=== PATIENT | male | born 2000 | race African-American/Black ===

== ENCOUNTER 2025-02-07 12:00 | Emergency (ER) | payer OTHER, SELFPAY ==
--- NOTE | ~2025-02-07 | XR_ITS ---
CLINICAL HISTORY: twist ankle, pain to ball of foot 3 view right foot Comparison: None provided Findings: Bones intact. No dislocations. No ankle effusion. No radiopaque foreign body. IMPRESSION: 1. No acute findings. This document has been electronically signed by: Luiza Rodríguez MD on 02/07/2025 15:05:59
--- NOTE | ~2025-02-07 | XR_ITS ---
CLINICAL HISTORY: twisted R ankle 3 view right ankle Comparison: None provided Findings: No acute fractures. Ankle mortise intact. No ankle effusion. No radiopaque foreign body. IMPRESSION: 1. No acute findings. This document has been electronically signed by: Luiza Rodríguez MD on 02/07/2025 15:05:04
[2025-02-07 12:08] VITALS: BP 107/63; PULSE 100; RESP 18; TEMP 36.6; O2SAT 99; BMI 27.3
--- NOTE | 2025-02-07 12:08 | ED_ITS ---
HPI - Extremity Injury (Lower) General Chief Complaint: Extremity Injury, Lower Stated Complaint: R ankle inj Time Seen by Provider: 02/07/25 15:09 Source: patient Mode of arrival: ambulatory Limitations: no limitations History of Present Illness ED Provider: NANCY ALEGRE PA-C HPI Narrative: 24 year old male presents to the ED today for evaluation of left ankle pain s/p injury occurring TAX INTERN. Patient reports he is currently in the . During a running drill today, patient states that he stopped abruptly to turn, causing his left ankle to roll/twist. Reports paint to the outer aspect of the ankle, extending to the ball of his foot. He was evaluated by the FD on scene, provided with ice with improvement in pain. Able to bear weight on the LLE. Denies numbness/weakness/tingling of the LLE. Denies any other injury. Related Data Allergies Allergy/AdvReac Type Severity Reaction Status Date / Time No Known Allergies Allergy Verified 02/07/25 12:09 Review of Systems Review of Systems: Yes all other systems are reviewed and are negative [facility] Past Medical History Attestation statement: The following information was validated with the patient. Source: old records reviewed and nursing notes reviewed Social History Social History Advance Directives: No Advance Directives Information Provided: No Do you have a plan to hurt others: No Plan Physical Exam Vital Signs: Vital Signs: Last Vital Signs Temp 98 F 02/07/25 15:22 Pulse 100 02/07/25 15:22 Resp 18 02/07/25 15:22 BP 107/63 02/07/25 15:22 Pulse Ox 99 02/07/25 15:22 O2 Del Method Room Air 02/07/25 15:22 BMI result Body Mass Index 27.3 vital signs stable General: Well appearing, in no acute distress. Skin: Warm, dry, intact. No rashes or lesions. Head: Normocephalic, atraumatic. EENT: Hearing is intact b/l. Conjunctiva clear. PERRLA. EOM intact. Moist mucous membranes.? Neck: Supple without LAD Cardiac: Chest wall symmetric. RRR Lungs: Normal respiratory effort without accessory muscle use. CTA bilaterally Ext: +mild swelling noted to lateral aspect of left ankle over lateral malleolus. no deformity, no overlying skin color changes. FROM intact to L ankle and all toes. ttp over lateral malleolus, no palpable deformity, crepitus, step off. 2+dp pulse intact. ambulating with slight limping gait. Neuro: AOx3. Normal speech. Course Course Course Narrative: This is a Rapid Medical Examination (RME) performed by Pascual Alegre PA-C in triage. Full HPI, ROS, assessment and treatment plan per primary provider in the Main ED. Hx: 24 yo M here w/ R ankle pain s/p running and twisting the R ankle. having R ankle pain extending to ball of R foot. pain worse w/ movement. Plan: xrs Reevaluation(s) Reevaluation #1: xrs negative for fracture. patient sprained his ankle. alexey wrap applied. declining crutches at this time. educated on RICE therapy. Patient has remained stable throughout ED visit today. Discussed worrisome signs and symptoms and when to return to the ED. All questions answered at this time. Patient is agreeable with disposition and stable for discharge. Medications Administered Discontinued Medications Generic Name Dose Route Start Last Admin Trade Name Freq PRN Reason Stop Dose Admin Acetaminophen 650 mg 02/07/25 15:15 02/07/25 15:19 Acetaminophen 325 Mg Tablet PO 02/07/25 15:16 650 mg ONCE ONE Administration Medical Decision Making Medical Decision Making [facility] Narrative: 24 year old male presents to the ED today for evaluation of left ankle pain s/p injury occurring TAX INTERN. vitals are stable. he is well appaering and in NAD. on exam, there is mild swelling noted to lateral aspect of left ankle over lateral malleolus. no deformity, no overlying skin color changes. FROM intact to L ankle and all toes. ttp over lateral malleolus, no palpable deformity, crepitus, step off. 2+dp pulse intact. ambulating with slight limping gait. Differential diagnosis includes msk sprain/strain, fracture Plan for imaging and disposition. Tylenol ordered for pain control. Differential Diagnosis Differential Diagnoses: The differential diagnosis associated with the presentation includes as above. Admission/Observation not indicated. Independent Interpretation I performed an independent interpretation of an: Plain X-Ray Interpretation: xr left ankle/foot without fracture Radiology Impression Radiologist Impression: Procedure(s): XR foot RT min 3V Accession Number(s): [id number] cc: Physician,None ; Nancy Alegre~ Reason for Exam: twist ankle, pain to ball of foot CLINICAL HISTORY: twist ankle, pain to ball of foot 3 view right foot Comparison: None provided Findings: Bones intact. No dislocations. No ankle effusion. No radiopaque foreign body. IMPRESSION: 1. No acute findings. This document has been electronically signed by: Luiza Rodríguez MD on 02/07/2025 15:05:59 Procedure(s): XR ankle RT min 3V Accession Number(s): [id number] cc: Physician,None ; Nancy Alegre~ Reason for Exam: twisted R ankle CLINICAL HISTORY: twisted R ankle 3 view right ankle Comparison: None provided Findings: No acute fractures. Ankle mortise intact. No ankle effusion. No radiopaque foreign body. IMPRESSION: 1. No acute findings. This document has been electronically signed by: Luiza Rodríguez MD on 02/07/2025 15:05:04 External Record Review External record reviewed: Inpatient record Prescription Management I considered prescription management with: Pain Medication Social Determinants Patient?s care significantly limited by Social Determinants of Health including: Other Social Determinant of Health Procedures Orthopedic Splinting/Casting Injury #1: Side: left Lower Extremity Injury Location: ankle Lower Extremity Immobilizer: Alexey wrap Critical Care Time Critical Care Time Critical Care Time: No Discharge Plan Discharge Clinical Impression: Left ankle sprain Patient Disposition: Home, Self-Care Instructions: Ankle Sprain (ED), P.R.I.C.E. Treatment (ED), Ice Pack Application (ED) Additional Instructions: You were evaluated in the ED today for a left ankle injury. Your x-rays do not demonstrate any sign of fracture. You sprained your ankle. We have placed your ankle in an Alexey wrap today to help with compression. Utilize RICE therapy at home - see home care instructions. Take tylenol/motrin at home as needed for pain/discomfort. Follow up with your primary care provider. Return with any new or worsening symptoms. In the case of an emergency call 911. Referrals: Physician,None [Primary Care Provider, Medical] Stand Alone Forms: Work/School Release Interventions: ED Discharge Assessment Last Done: 02/07/25 15:22 Discharge Date/Time: 02/07/25 15:30 Print Language: Mikel
[2025-02-07 15:22] VITALS: BP 107/63; PULSE 100; RESP 18; TEMP 36.6; O2SAT 99
--- OUTSIDE RECORDS SUMMARY | 2025-02-07 15:30 | XMS_ITS | Data Portability ---
Author Organization ANDREA Hayes s, [address] Address [address] [place] [address] Assessment No assessment recorded. Plan of Treatment Reminders Order Date Submit Date Provider Last Modified By Organization Details Last Modified Time Details Appointments None recorded. Lab rapid strep group A, throat 2023 024 [email or web address] [facility], [address] [place], [address], 4 19:44:05 rapid flu (A+B) 2023 024 [email or web address] [facility], [address] [place], [address], 4 19:44:06 SARS CoV 2 (COVID-19) Ag, QL, IA, upper respiratory specimen 2023 024 [email or web address] [facility], [address] [place], [address], 4 19:44:07 rapid strep group A, throat 2022 023 [email or web address] _[facility], [address] [place] [address], [address], 3 12:14:55 Referral orthopedic surgeon referral 2023 024 jana bartlett [facility], [address], [address] [place], [address], 13:20:18 Procedures None recorded. Surgeries None recorded. Imaging None recorded. Medication Orders amoxicillin 875 mg-potassiu m clavulanate 125 mg tablet 2023 024 [facility][id number], [address] [facility] [place], [address], 19:44:05 amoxicillin 875 mg-potassiu m clavulanate 125 mg tablet 2023 024 [id number], [address] [facility] [place], [address], 19:06:16 dexamethaso ne sodium phosphate (PF) 10 mg/mL injection solution 2022 023 [email or web address] Not available 12:49:45 Patient TargetsNo targets recorded. Patient Instructions Encounter Date Encounter Id Patient Instructions Last Modified By Organization Details Last Modified Time 05/13/2022 [id number] sore throat: car e instructions [email or web address] Not available 05/13/2022 12:14:54 04/30/2023 [id number] Acute Sinusitis: Care Instructions [email or web address] Not available 04/30/2023 13:12:48 knee pain or injury: care instructions [email or web address] Not available 04/30/2023 13:14:38 Take the antibiotic as prescribed. Take an over the counter probiotic daily while taking the antibiotic. Over the counter mucinex may be taken for congestion if needed. Take per package instructions. Over the counter tylenol or ibuprofen may be taken if needed for pain. A referral has been made to orthopedics for you. Call [facility] for an appointment as soon as possible. See printed instructions. Follow-up with your doctor if no improvement in your sinus symptoms in a week. Seek Emergency Medical evaluation for any worsening symptoms, particularly for high fever, shaking chills, severe headache, rash, stiff neck, trouble breathing, severe diarrhea. [email or web address] Not available 04/30/2023 13:17:09 05/17/2023 [id number] Acute Sinusitis: Care Instructions Not available 05/17/2023 19:44:03 upper respirator y infection (cold): care instructions Not available 05/17/2023 19:44:03 Reason for Referral Orthopedic Surgeon Referral for Pain of bilateral knee joints Bilatearl knee pain since 2021. No trauma. Interfering with physical activity. Referring Physician: Kayla Mackey, Urgent Care, Encounter Date: 04/30/2023 Results Created Date Observation Date Name Description Value Unit Range Abnormal Flag Note LastModifiedBy Organization Detail LastModifiedTime 05/14/1905/13/2022 rapid strep group A, throa t Unknown Analyte negati ve Not Available [address] [address], [address], 05/13/2022 11:34:56 05/14/19 23 05/13/2022 rapid strep group A, throa t Unknown Analyte Normal = Negati ve Not Available [email or web address] [address], [address], 05/13/2022 11:34:56 05/17/19 24 05/17/2023 rapid strep group A, throa t Unknown Analyte negati ve Not Available [address] [place], [address], 05/17/2023 19:09:51 05/17/19 24 05/17/2023 SARS CoV 2 (COVI D-19) Ag, QL, IA, upper respi rator y speci men Unknown Analyte negati ve Not Available [address] [place], [address], 05/17/2023 19:10:40 05/17/19 24 05/17/2023 rapid flu (A+B) Unknown Analyte negati ve Not Available [address] [place], [address], 05/17/2023 19:10:05 05/17/19 24 05/17/2023 rapid flu (A+B) Unknown Analyte negati ve Not Available [address] [facility], [place], [address], 05/17/2023 19:10:05 Result Notes None recorded. Problems Name Problem SNOMED Code Status Onset Date Resolution Date Notes Provider Name and Address Organization Details Recorded Time Upper respiratory infection 88229217 Active 2023 Edith Bryant NP [address] , [place], [address], [place] - [facility] 19:31:52 Acute left otitis media 796858008 Active 2023 Edith Bryant NP [address] , [place], [address], [place] - [facility] 19:43:40 Problem Notes None recorded. Medical Equipment None Reported. Allergies No known drug allergies Medications Name Sig Start Date Stop Date Status Note LastModified by Organization Details LastModified Time amoxicill in 875 mg-potass ium clavulana te 125 mg tablet Take 1 tablet every 12 hours by oral route for 10 days. 2023 active Not Available Not Available Not Avai lable dexametha sone sodium phosphate (PF) 10 mg/mL injection solution Take 10 mg by injectio n route. 04/30 completed Administ er Orally Not Available Not Available Not Available Vitals Date Recorded Body height Body mass index (BMI) Body weight Oxygen saturation Respiratory rate Body temperature Heart rate Systolic And Diastolic Provider Name and Address Organization Details Last Updated DateTime 4 187.96 cm 23.8 kg/m2 96199.5 9 g 96 % 18 /min 98.1 [degF] 67 /min 113/77 mm[Hg] HERMILA AVERY PA - [facility] 4 12:51:17 Date Recorded Body height Body mass index (BMI) [Percentile] Per age and sex Body mass index (BMI) Body weight Oxygen saturation Heart rate Respiratory rate Body temperature Systolic And Diastolic Provider Name and Address Organization Details Last Updated DateTime 3 187.96 cm 62 % 24.4 kg/m2 65037.5 5 g 99 % 88 /min 16 /min 98.7 [degF] 117/76 mm[Hg] KATEY BEST PA - [facility] 3 11:52:22 Date Recorded Body height Body mass index (BMI) Body weight Oxygen saturation Heart rate Respiratory rate Body temperature Systolic And Diastolic Provider Name and Address Organization Details Last Updated DateTime 4 187.96 cm 26.3 kg/m2 83923.4 4 g 98 % 68 /min 18 /min 98.3 [degF] 97/62 mm[Hg] Tricia Hall PA - [facility] 4 19:09:19 Social History Question Answer Notes LastModified by [email or web address] Details LastModified Time Tobacco Smoking Status Never Smoker KATEY BEST joshua PA - [facility] 05/13/2022 11:36:19 Have You Had A Flu Shot This Season? Yes Information not available 05/17/2023 If No, Would You Like A Flu Shot Today? No Information not available 05/17/2023 Have You Had Direct Contact, Or Contact During Intimacy, With Monkeypox Rash, Scabs, Or Body Fluids From A Person With Monkeypox? No Information not available 05/17/2023 What Was The Date Of Your Most Recent Tobacco Screening? 05/17/2023 Information not available 05/17/2023 What Is Your Relationship Status? Single Information not available 05/17/2023 Have You Recently Traveled Abroad? No Information not available 05/13/2022 Are You Currently In School? No Information not available 05/17/2023 Sex: Unknown Functional Status Question Answer Note LastModified by userfox Details LastModified Time How many times per week do you consume alcohol? Less than 1 time per week Information not available 05/17/2023 Do you use any illicit or recreational drugs? No Information not available 05/13/2022 Do you or have you ever used any other forms of tobacco or nicotine? No Information not available 05/13/2022 What is your level of alcohol consumption? Occasional [email or web address] Information not available 04/30/2023 Are you currently employed? Yes Information not available 05/13/2022 Mental Status None recorded. Family History Relationship Description Onset Age of this Age Resolved Age Notes LastModified by Organization Details LastModified Time Father No current problems or disability Not available 05/13 11:36:03 Mother No current problems or disability Not available 05/13 11:36:03 Medical History No medical history recorded. Immunizations Vaccine Type Date Status Note Provider Nam e and Address Organization Details Recorded Time SARS-COV-2 (COVID-19) vaccine, UNSPECIFIED 10/04/2020 completed Tricia lewis PA - [facility] 05/17/2023 19:07:03 SARS-COV-2 (COVID-19) vaccine, UNSPECIFIED 10/18/2020 completed Tricia lewis PA - [facility] 05/17/2023 19:07:13 Past Encounters Encounter ID Performer Location Encounter Start Date Encounter Closed Date Diagnosis/Indication Diagnosis SNOMED-CT Code Diagnosis ICD10 Code Diagnosis IMO Codes Diagnosis Note [id number] RUBIO SERNA MD [address] [address] 05/13/2022 09:09:55 05/13/2022 12:28:38 Acute laryngitis 8362466 J04.0 Sore throatClea r liquids for comfortFre sh Enisha Root Tea-Cut up fresh neisha root and boil it till fragrant. drink the liquid as a tea. Can add Honey to taste. Also For Sore Throat:Thr oat Comfort Tea (by [employer])Thro at Coat Tea ( by [employer] ) Clear broth soup: Vegetable, Chicken or Beef as tolerated. Salt Water GarglesMix 1 teaspoonfu l of salt in a glass of warm water. Gargle and spit out the salt water mixture one mouthful at a time until the glass is empty. Repeat 4 times daily. [id number] Kayla Mackey [place] [address] [place] [place] [address] 04/30/2023 11:34:18 04/30/2023 13:20:18 Sinusitis 99810552 J32.9 Pain of bi lateral knee joints 2093682746 80941 M25.561 M25.562 [id number] Edith Bryant NP [address] [facility] [address] [facility] [place] [place] [address] 05/17/2023 19:01:19 05/17/2023 19:50:06 Upper respiratory infection 65101353 J06.9 Based on your Presentati on, Exam, and Lab Testing you are being diagnosed with Upper respirator y track infection Your covid test was negative You are considered contagious for 5 Days after the start of the fever. You should isolate and not go to work, sports, events during this quarantine period. The following are my recommenda tions to help with your symptoms while your body fights this infection: 1. Take Ibuprofen or Tylenol if you do not have any allergies to these medication s. If you take a blood thinner you should not take NSAIDS like Ibuprofen. These medication will help with the inflammati on in your respirator y tract which should help the cough.2. Do not take any decongesta nts at this time because this will dry out that tract too much. If you have a lot of nasal congestion you can try nasal decongesta nts, but I would not take them more than 5 days.3. Use a humidifier or add a cup of water by your bed. Sometimes if our sleeping environmen t is too dry this can lead to cough4. Salt Water Gargles5. Saline nasal spray is helpful.6. Would recommend taking a antihistam ine to help with the congestion .7. Clean Surfaces regularly and try to stay isolated from family members. I would be seen again if you develop any of the following. 1. Cough develops last longer than 3 weeks.2. Develop shortness of breath or wheezing.3 . Severe Headache with vision changes4. Stiff Neck5. Fever does not reduce a few points with Ibuprofen or Tylenol. I would go immediatel y to the Emergency Room if you develop:1. Chest Pain2. Severe Shortness of breath3. Coughing up Blood. I would be seen again if you develop any of the following symptoms.1 . Fever > 101.02. Stiff neck - where you can't turn your neck3. Trouble swallowing your saliva - drooling4. Swelling of a lymph node in your throat that is painful to touch5. Difficulty breathing6 . Severe Headache Thank you for using [facility] today, please feel free to contact our office if you have any questions or concerns. Acute left otitis media 488836304 H66.92 Health Concerns Section Related Observation LastModified by Organization Detai ls LastModified Time None Recorded Concern Status LastModified by Organization Details LastModified Time None Recorded Advance Directives Directive None Recorded Payers Insurance Date Sequence Insurance Name Policy Number Policy Brantley Covered Member ID Brantley Member ID Guarantor Name 06/08/2023 1 [facility] () [facility] [id number] [facility] Notes Date Note Type Note Provider Name and Address Organization Details Recorded Time 3 text/html Sore throatReported by PatientSore ThroatFor associated symptoms, patient reportshoarsenessbut reportsno cough,no shortness of breath, andno sinus pain. For location, patient reportsthroat. For severity, patient reportsmoderate. For quality, patient reportssharpandhurts to swallow. For onset/timing, patient reports2 days.ROS as noted in the HPI He describes pain in the laryngeal area of the throat. RUBIO SERNA MD [address] [place], [place] [address], [address], [place] - [facility] 05/13/2022 12:40:02 4 text/html KneeReported by PatientHPIFor location, patient reportsbilateralandanteri or. For quality, patient reportsachingandconstant. For duration, patient reports2 years. For timing, patient reportsgradual. For context, patient reportscannot identify. For alleviating factors, patient reportsrest. For aggravating factors, patient reportsstandingandwalking (running.). For associated symptoms, patient reportsno weakness,no numbness,no tingling,no swelling,no redness,no ecchymosis,no catching/locking,no popping/clicking,no buckling,no grinding,no instability,no radiation down leg,no drainage,no fever, andno chills. For previous surgery, patient reportsnone. For prior imaging, patient reportsx rayandmri. For previous injections, patient reportsnone. For previous pt, patient reportsnone. For severity, (waxing and waning in severity.). For working, (on active duty in .). CongestionNewReported by PatientHPIFor location, patient reportsbilateral(frontal and maxillary sinuses.). For associated symptoms, patient reportscough,runny nose, andmoderate. For quality, patient reportspressure. For timing, patient reportsconstantandgradual onset(1 month.).22 year old male presenting for 2 different problems. First he reports bilateral frontal and maxillary sinus pain and pressure, nasal congestion, runny nose and post nasal drip with productive cough, particularly in the morning for one month. No fever, chills, sore throat, chest pain, wheezing, shortness of breath, generalized headache, rash, stiff neck, GI symptoms. He is also here due to c/o chronic bilateral knee pain for the past 2 years. 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 He reports that he had xrays through the that were unremarkable. He subsequently had an MRI of his right knee but does not know the report. One month ago he failed his physical fitness test due to being unable to complete a run due to his knee pain. He reports that he is scheduled for a repeat physical fitness test and is requesting a note to not participate in the running part of the test due to his knee pain. No knee swelling or increased warmth, no skin redness, no numbness or weakness of the extremities. His knee pain is worse with standing, walking and particularly with running. Kayla Mackey MD [address] [place] [address] [place], [address], [place] - [facility] 04/30/2023 15:03:03 4 text/html Sinus Complaints UCReported by Patient Headache UCReported by Patient Sore throatReported by PatientSore ThroatFor associated symptoms, patient reportssore throat,fever,__ congestion,coughing, andsinus pain/ congestionbut reportsno sputum production,no shortness of breath,no wheezing,no vomiting,no nausea, andno hoarseness. For context, patient reportssick contactbut reportsno foreign travelandnon-smoker. For source of patient information, patient reportsinformation obtained from patientandpatient arrived at urgent care ambulatory. For location, patient reportsthroat. For severity, patient reportsmoderate. For quality, patient reportssharpandhurts to swallow. CoughReported by Patient Presents with MACKEY, cough, ST Edith Bryant NP [address] [place], [address], [place] - [facility] 06/08/2023 09:36:40
--- OUTSIDE RECORDS SUMMARY | 2025-02-07 15:30 | XMS_ITS | Data Portability ---
Author Organization [place] - .[facility] Address [address] [place] [address] Assessment No assessment recorded. Plan of Treatment Reminders Order Date Submit Date Provider Last Modified By Organization Details Last Modified Time Details Appointments None recorded. Lab influenza virus A + B and SARS CoV 2 (COVID-19) and RSV RNA panel, NADIYA+probe, respiratory specimen 2023 024 [facility], [address] [place] [address], [id number], 4 06:38:57 influenza virus A + B + SARS-CoV-2 (COVID19) Ag panel, rapid IA, upper respiratory specimen 2023 024 [email or web address] [facility], [address] [place], [id number], 4 19:15:47 HIV 1+2 AB + HIV 1 p24 Ag, qualitative immunoassay , serum 2022 023 [email or web address] [facility], [facility] [place], [address], 3 11:03:48 chlamydia + gonorrhea RNA, QL, unspecified specimen 2022 023 [email or web address] [facility], [address] [place] [address], [address], 3 11:03:48 HBsAg (hepatitis B surface Ag), serum 2022 023 [email or web address] [facility], [address] [place] [address], [address], 3 11:03:48 hepatitis C virus Ab, serum 2022 023 [email or web address] d [facility], [address] [place] [address], [address], 3 11:03:48 syphilis Ab, igg 2022 023 [email or web address] [facility], [address] [place] [address], [address], 3 11:03:48 trichomonas vaginalis RNA, tma, genital 2022 023 [email or web address] d [facility], [address] [place] [address], [address], 3 11:03:48 urinalysis, dipstick 2022 023 [email or web address], [address], [place], , 3 20:03:51 culture, urine 2022 023 [facility], [address] [place] [address], [address], 3 08:25:12 unlisted lab - STD panel (urine) - d 2022 023 [facility], [address] [place] [address], [address], 3 22:09:35 HIV 1+2 AB + HIV 1 p24 Ag, qualitative immunoassay , serum 2022 023 [facility], [address] [facility] [place], [address], 3 22:25:58 rapid SARS CoV 2 Ag, QL IA, respiratory specimen 2020 021 [email or web address] [facility], [address] [place], [id number], 20:01:15 Referral primary care provider referral - List 2022 023 [email or web address] Not available 3 11:03:48 primary care provider referral - List 2022 023 LYN Not available 4 05:04:26 Procedures None recorded. Surgeries None recorded. Imaging None recorded. Medication Orders Tylenol Extra Strength 500 mg tablet 2023 024 [id number], [address], [place], [id number], 4 19:15:47 cefdinir 300 mg capsule 2023 024 [id number], [address], [place], [id number], 4 19:15:47 Patient TargetsNo targets recorded. Patient Instructions Encounter Date Encounter Id Patient Instructions Last Modified By Organization Details Last Modified Time 02/03/2021 [id number] A healthy lifestyle: care instructions [email or web address] Not available 02/03/2021 20:01:15 Thank you for visiting [email or web address]. There are two ways to view your lab results: : 1. The Ready To [employer] fernando is available to all patients 18 and older in the Fernando Store and Google Play. First-time fernando users will need to create an account; please note you l l need to select a login and password for the fernando versus just using your patient portal login credentials. Your lab results will be posted to the Ready [employer] fernando as soon as they r e available. 2. Via email , as soon as lab results are available. If you don t receive an email within the estimated time frame, give our Aftercare team a call at [phone]. Rapid Covid-19 Testing: You were tested today for COVID-19 using a rapid nsjpw-ib-ifbh test. Your results will be sent to you shortly via email. The next steps in your care depend on the results from this test AND the presence or absence of symptoms. Negative Rapid Covid-19: If you are without symptoms AND your Rapid Covid-19 test is Negative, AND you have not had a recent High Risk Exposure to COVID-19 (ie. close contact for more than 15 minutes (cumulative over 24 hours) to someone with confirmed COVID-19), you are cleared to return to work/school without limitations. Positive Rapid Covid-19: 1.) Symptomatic: If you're having symptoms and test positive for COVID-19, you are recommended to self-quarantine for 10 days from the onset of symptoms. After 10 days, you may return to work provided your respiratory symptoms (ie. cough, runny nose, etc) are improving AND you are fever-free for 24 hours (without using fever reducing medications like acetaminophen or ibuprofen). 2.) Asymptomatic: If you are without symptoms and test positive, you should self-quarantine until 10 days after today. If a PCR test was also sent, the results (positive or negative) will not change your need to quarantine. If you go on to develop symptoms, you may still return to work/school 10 days after the date of your positive test provided your symptoms are improving and you are fever-free for 24 hours (from date of exposure) regardless of the results of today's test. High Risk Exposure: If you have had a recent High Risk Exposure to COVID-19 (ie. close contact for more than 10 minutes (cumulative over 24 hours) to someone with confirmed COVID-19) you should Self-Quarantine for 10 days (from date of exposure) regardless of the results of today's test. (If you have received the 2nd dose of the COVID-19 VACCINE more than 14 days ago (and within the past 90 days) you do NOT need to quarantine after this recent high-risk exposure (provided you remain asymptomatic). MONITOR YOUR SYMPTOMS: If at any point your symptoms become worse or severe such as fever that will not improve with medicine, shortness of breath, chest pain or discomfort, abdominal pain, inability to tolerate eating and drinking, please return to [facility] or go to the closest Emergency Room. QUARANTINE INFO: If you were asked to quarantine yourself, please stay in your own part of the house away from everyone else, using your own bedroom and bathroom, if possible. If you need to be in a common area ensure that both you and anyone else around you is wearing a mask. If you are age 18 to 65 and have recently tested positive for SARS-CoV-19, you can help in the fight against COVID-19! Antibodies from your blood can be given to patients with COVID-19 to help save lives. Sign up using the link below. If you are eligible, a member of our team will contact you to schedule an appointment. Donors are compensated at each donation! Please visit [email or web address] and complete the screening form to see if you are eligible for donation [email or web address] Not available 02/03/2021 17:42:33 07/19/2022 [id number] A healthy lifestyle: care instructions [email or web address] Not available 07/19/2022 14:28:45 Thank you for visiting [facility].There are two ways to view your lab results: : 1. The Ready To Travel fernando is available to all patients 18 and older in the Fernando Store and Google Play. First-time fernando users will need to create an account; please note you l l need to select a login and password for the fernando versus just using your patient portal login credentials. Your lab results will be posted to the Ready To Travel fernando as soon as they r e available. 2. Via email , as soon as lab results are available. If you don t receive an email within the estimated time frame, give our Aftercare team a call at [phone]. STD TESTING Your visit today was potentially related to a sexually transmitted disease (STD). Testing and treatment may have been initiated by your caregiver. A definitive diagnosis often cannot be made at the time of the visit and tests are sent out to a laboratory help to ascertain answers to your concerns. As an urgent care provider, we have made our best attempt to diagnose your condition. However, it is important that you follow up with your regular provider for continued care as necessary. Please contact us with any questions regarding your care or treatment. We are here to help. HOME CARE Abstain from sexual intercourse for one week after treatment for you (or your partner) for a presumed STD, or until the results of your STD tests are back if you did not receive treatment at your visit today. Notifying and having your partner treated if possible, is essential to prevent spread of disease and repeated infection: if you resume sexual relations with an untreated partner, you will likely contract the STD again. Return if your symptoms do not resolve with treatment. Follow up with your primary care physician (or neonatal specialist, if applicable) for ongoing medical treatment. Repeat testing after periods of time is usually needed to confirm that you have not been infected with certain STDs. TEST RESULTS If tests were performed during your visit, test results will be relayed to you by our Aftercare department. Please understand that some blood tests take longer to process than others as secondary testing may be performed to ensure accuracy. Some test results take up to two weeks for return to us from the laboratory; you may be asked to return to [facility] for a discussion of your results. Please call [facility] Aftercare if you desire a status update on your results. If you have questions on the day of treatment, you are best served to first contact the site you visited for care and testing so that you may speak with your providing caregiver. You can also reach Aftercare at ; office hours are 8 am to 9 pm Sun-Sun, and 9 am to 7 pm on weekends. [email or web address] Not available 07/19/2022 13:22:18 09/14/2022 [id number] A healthy lifestyle: care instructions Not available 09/14/2022 20:03:51 abdominal pain: care instructions Not available 09/14/2022 20:03:51 Thank you for visiting [employer] [facility]. We may be calling you to review your lab results or schedule a follow up appointment. The call will be through an automated system which asks you to press a castillo to speak with one of our agents. Please be on the lookout for this call and listen to the message in its entirety. You may also view your lab results using the Ready To Travel fernando, available in the Fernando Store and [employer]. First-time fernando users will need to create an account; please note you l l need to select a login and password for the fernando versus just using your patient portal login. Your lab results will be posted to the Ready To Travel fernando as soon as they r e available. If you have any questions regarding your visit, our Aftercare department can be reached at [phone]. Our hours are Sunday from 8 am 11 pm or Sunday/Sunday from 9a 8p. Abdominal Pain Abdominal pain has many possible causes. Some aren''t serious and get better on their own in a few days. Others need more testing and treatment. If your pain continues or gets worse, you need to be rechecked and may need more tests to find out what is wrong. You may need surgery to correct the problem. Don''t ignore new symptoms, such as fever, nausea and vomiting, urination problems, pain that gets worse, and dizziness. These may be signs of a more serious problem. Your doctor may have recommended a follow-up visit in the next 8 to 12 hours. If you are not getting better, you may need more tests or treatment. The doctor has checked you carefully, but problems can develop later. If you notice any problems or new symptoms, get medical treatment right away. Follow-up care is a castillo part of your treatment and safety. Be sure to make and go to all appointments, and call your doctor if you are having problems. It''s also a good idea to know your test results and keep a list of the medicines you take. How can you care for yourself at home? Rest until you feel better. To prevent dehydration, drink plenty of fluids, enough so that your urine is light yellow or clear like water. Choose water and other caffeine-free clear liquids until you feel better. If you have kidney, heart, or liver disease and have to limit fluids, talk with your doctor before you increase the amount of fluids you drink. If your stomach is upset, eat mild foods, such as rice, dry toast or crackers, bananas, and applesauce. Try eating several small meals instead of two or three large ones. Wait until 48 hours after all symptoms have gone away before you have spicy foods, alcohol, and drinks that contain caffeine. Do not eat foods that are high in fat. Avoid anti-inflammatory medicines such as aspirin, ibuprofen (Advil, Motrin), and naproxen (Aleve). These can cause stomach upset. Talk to your doctor if you take daily aspirin for another health problem. When should you call for help? Call 911 anytime you think you may need emergency care. For example, call if: You passed out (lost consciousness). You pass maroon or very bloody stools. You vomit blood or what looks like coffee grounds. You have new, severe belly pain. Call your doctor now or seek immediate medical care if: Your pain gets worse, especially if it becomes focused in one area of your belly. You have a new or higher fever. Your stools are black and look like tar, or they have streaks of blood. You have unexpected vaginal bleeding. You have symptoms of a urinary tract infection. These may include: Pain when you urinate. Urinating more often than usual. Blood in your urine. You are dizzy or lightheaded, or you feel like you may faint. Watch closely for changes in your health, and be sure to contact your doctor if: You are not getting better after 1 day (24 hours). Gastritis Your Care Instructions Gastritis is a sore and upset stomach. It happens when something irritates the stomach lining. Many things can cause it. These include an infection such as the flu or something you ate or drank. Medicines or a sore on the lining of the stomach (ulcer) also can cause it. Your belly may bloat and ache. You may belch, vomit, and feel sick to your stomach. You should be able to relieve the problem by taking medicine. And it may help to change your diet. If gastritis lasts, your doctor may prescribe medicine. Follow-up care is a castillo part of your treatment and safety. Be sure to make and go to all appointments, and call your doctor if you are having problems. It's also a good idea to know your test results and keep a list of the medicines you take. How can you care for yourself at home? If your doctor prescribed antibiotics, take them as directed. Do not stop taking them just because you feel better. You need to take the full course of antibiotics. Be safe with medicines. If your doctor prescribed medicine to decrease stomach acid, take it as directed. Call your doctor if you think you are having a problem with your medicine. Do not take any other medicine, including ovle-can-ywvalyy pain relievers, without talking to your doctor first. If your doctor recommends agbs-eeh-pjbfehb medicine to reduce stomach acid, such as Pepcid AC, Prilosec, Tagamet HB, or Zantac 75, follow the directions on the label. Drink plenty of fluids (enough so that your urine is light yellow or clear like water) to prevent dehydration. Choose water and other caffeine-free clear liquids. If you have kidney, heart, or liver disease and have to limit fluids, talk with your doctor before you increase the amount of fluids you drink. Limit how much alcohol you drink. Avoid coffee, tea, cola drinks, chocolate, and other foods with caffeine. They increase stomach acid. When should you call for help? Call 911 anytime you think you may need emergency care. For example, call if: You vomit blood or what looks like coffee grounds. You pass maroon or very bloody stools. Call your doctor now or seek immediate medical care if: You start breathing fast and have not produced urine in the last 8 hours. You cannot keep fluids down. Watch closely for changes in your health, and be sure to contact your doctor if: You do not get better as expected. Diarrhea Your Care Instructions Diarrhea is loose, watery stools (bowel movements). The exact cause is often hard to find. Sometimes diarrhea is your body's way of getting rid of what caused an upset stomach. Viruses, food poisoning, and many medicines can cause diarrhea. Some people get diarrhea in response to emotional stress, anxiety, or certain foods. Almost everyone has diarrhea now and then. It usually isn't serious, and your stools will return to normal soon. The important thing to do is replace the fluids you have lost, so you can prevent dehydration. The doctor has checked you carefully, but problems can develop later. If you notice any problems or new symptoms, get medical treatment right away. Follow-up care is a castillo part of your treatment and safety. Be sure to make and go to all appointments, and call your doctor if you are having problems. It's also a good idea to know your test results and keep a list of the medicines you take. How can you care for yourself at home? Watch for signs of dehydration, which means your body has lost too much water. Dehydration is a serious condition and should be treated right away. Signs of dehydration are: Increasing thirst and dry eyes and mouth. Feeling faint or lightheaded. Darker urine, and a smaller amount of urine than normal. To prevent dehydration, drink plenty of fluids, enough so that your urine is light yellow or clear like water. Choose water and other caffeine-free clear liquids until you feel better. If you have kidney, heart, or liver disease and have to limit fluids, talk with your doctor before you increase the amount of fluids you drink. Begin eating small amounts of mild foods the next day, if you feel like it. Try yogurt that has live cultures of Lactobacillus. (Check the label.) Avoid spicy foods, fruits, alcohol, and caffeine until 48 hours after all symptoms are gone. Avoid chewing gum that contains sorbitol. Avoid dairy products (except for yogurt with Lactobacillus) while you have diarrhea and for 3 days after symptoms are gone. The doctor may recommend that you take zcpy-nge-jlhttme medicine, such as loperamide (Imodium), if you still have diarrhea after 6 hours. Read and follow all instructions on the label. Do not use this medicine if you have bloody diarrhea, a high fever, or other signs of serious illness. Call your doctor if you think you are having a problem with your medicine. When should you call for help? Call 911 anytime you think you may need emergency care. For example, call if: You passed out (lost consciousness). Your stools are maroon or very bloody. Call your doctor now or seek immediate medical care if: You are dizzy or lightheaded, or you feel like you may faint. Your stools are black and look like tar, or they have streaks of blood. You have new or worse belly pain. You have symptoms of dehydration, such as: Dry eyes and a dry mouth. Passing only a little dark urine. Feeling thirstier than usual. You have a new or higher fever. Watch closely for changes in your health, and be sure to contact your doctor if: Your diarrhea is getting worse. You see pus in the diarrhea. You are not getting better after 2 days (48 hours). Not available 09/15/2022 13:44:47 12/09/2022 [id number] A healthy lifestyle: care instructions [email or web address] Not available 12/15/2022 11:03:48 Thank you for visiting [facility]. We may be calling you to review your lab results or schedule a follow up appointment. The call will be through an automated system which asks you to press a castillo to speak with one of our agents. Please be on the lookout for this call and listen to the message in its entirety. You may also view your lab results using the Ready To [employer] fernando, available in the Fernando Store and Google Play. First-time fernando users will need to create an account; please note you l l need to select a login and password for the fernando versus just using your patient portal login. Your lab results will be posted to the Ready [employer] fernando as soon as they r e available. If you have any questions regarding your visit, our Aftercare department can be reached at [phone]. Our hours are Sunday from 8 am 11 pm or Sunday/Sunday from 9a 8p. STD TESTING Your visit today was potentially related to a sexually transmitted disease (STD). Testing and treatment may have been initiated by your caregiver. A definitive diagnosis often cannot be made at the time of the visit and tests are sent out to a laboratory help to ascertain answers to your concerns. As an urgent care provider, we have made our best attempt to diagnose your condition. However, it is important that you follow up with your regular provider for continued care as necessary. Please contact us with any questions regarding your care or treatment. We are here to help. HOME CARE Abstain from sexual intercourse for one week after treatment for you (or your partner) for a presumed STD, or until the results of your STD tests are back if you did not receive treatment at your visit today. Notifying and having your partner treated if possible, is essential to prevent spread of disease and repeated infection: if you resume sexual relations with an untreated partner, you will likely contract the STD again. Return if your symptoms do not resolve with treatment. Follow up with your primary care physician (or neonatal specialist, if applicable) for ongoing medical treatment. Repeat testing after periods of time is usually needed to confirm that you have not been infected with certain STDs. TEST RESULTS If tests were performed during your visit, test results will be relayed to you by our Aftercare department. Please understand that some blood tests take longer to process than others as secondary testing may be performed to ensure accuracy. Some test results take up to two weeks for return to us from the laboratory; you may be asked to return to [facility] for a discussion of your results. Please call [facility] Aftercare if you desire a status update on your results. If you have questions on the day of treatment, you are best served to first contact the site you visited for care and testing so that you may speak with your providing caregiver. You can also reach Aftercare at ; office hours are 8 am to 9 pm Sun-Sun, and 9 am to 7 pm on weekends. Not available 12/09/2022 17:09:45 07/06/2023 [id number] A healthy lifestyle: care instructions [email or web address] Not available 07/06/2023 19:15:47 chronic sinusiti s: care instructions [email or web address] Not available 07/06/2023 19:15:47 Acute Sinusitis: Care Instructions [email or web address] Not available 07/06/2023 19:15:47 Thank you for visiting [employer] [facility]. We may be calling you to review your lab results or schedule a follow up appointment. The call will be through an automated system which asks you to press a castillo to speak with one of our agents. Please be on the lookout for this call and listen to the message in its entirety. You may also view your lab results using the Ready [employer] fernando, available in the Fernando Store and [employer]. First-time fernando users will need to create an account; please note you l l need to select a login and password for the fernando versus just using your patient portal login. Your lab results will be posted to the Ready To Travel fernando as soon as they r e available. If you have any questions regarding your visit, our Aftercare department can be reached at [phone]. Our hours are Sunday from 8 am 11 pm or Sunday/Sunday from 9a 8p. Sinusitis Sinusitis is an infection of the lining of the sinus cavities in your head. Sinusitis often follows a cold. It causes pain and pressure in your head and face. In most cases, sinusitis gets better on its own in 1 to 2 weeks. But some mild symptoms may last for several weeks. Sometimes antibiotics are needed. Follow-up care is a castillo part of your treatment and safety. Be sure to make and go to all appointments, and call your doctor if you are having problems. It's also a good idea to know your test results and keep a list of the medicines you take. How can you care for yourself at home? Take an ojhk-gmc-rueydus pain medicine, such as acetaminophen (Tylenol), ibuprofen (Advil, Motrin), or naproxen (Aleve). Read and follow all instructions on the label. If the doctor prescribed antibiotics, take them as directed. Do not stop taking them just because you feel better. You need to take the full course of antibiotics. Be careful when taking cjzv-mht-vipxjtc cold or flu medicines and Tylenol at the same time. Many of these medicines have acetaminophen, which is Tylenol. Read the labels to make sure that you are not taking more than the recommended dose. Too much acetaminophen (Tylenol) can be harmful. Breathe warm, moist air from a steamy shower, a hot bath, or a sink filled with hot water. Avoid cold, dry air. Using a humidifier in your home may help. Follow the directions for cleaning the machine. Use saline (saltwater) nasal washes to help keep your nasal passages open and wash out mucus and bacteria. You can buy saline nose drops at a grocery store or drugstore. Or you can make your own at home by adding 1 teaspoon of salt and 1 teaspoon of baking soda to 2 cups of distilled water. If you make your own, fill a bulb syringe with the solution, insert the tip into your nostril, and squeeze gently. Blow your nose. Put a hot, wet towel or a warm gel pack on your face 3 or 4 times a day for 5 to 10 minutes each time. Try a decongestant nasal spray like oxymetazoline (Afrin). Do not use it for more than 3 days in a row. Using it for more than 3 days can make your congestion worse. When should you call for help? Call your doctor now or seek immediate medical care if: You have new or worse swelling or redness in your face or around your eyes. You have a new or higher fever. Watch closely for changes in your health, and be sure to contact your doctor if: You have new or worse facial pain. The mucus from your nose becomes thicker (like pus) or has new blood in it. You are not getting better as expected. Ht 6 ft 1 in (185.42 cm) Wt 200 lbs (90.72 kg) BP 126 / 68 Pulse 108 bpm Abnormal T 102 F (38.89 C) Abnormal RR 16 O2Sat 98 % BMI 26.4 [id number] Not available 07/06/2023 19:12:57 Reason for Referral Primary Care Provider Referr al for Abdominal pain Establishment of care List Referring Physician: Corbin Durand, Urgent Care, Encounter Date: 09/14/2022 Primary Care Provider Referr al for Referral needed establish care List Referring Physician: Heena Webb, Urgent Care, Encounter Date: 12/09/2022 Results Created Date Observation Date Name Description Value Unit Range Abnormal Flag Note LastModifiedBy Organization Detail LastModifiedTime 02/04/20 21 02/03/2021 rapid SARS CoV 2 Ag, QL IA, respi rator y speci men Rapid COVID-19 Antigen (Internal Control Positive) Negati ve Not Available [facility] [address] [place], [address], 02/03/2021 17:29:19 07/20/19 23 07/19/2022 SYPHI LIS SCREE N/REF ANTOINE TO RPR T. pallidum antibody NEGATI VE negati ve normal No antib odies to T. palli dum (the agent causi ng Syphi lis) were detec malaika in the speci men. This resul t, does not exclu de very recen t T. palli dum infec tion; testi ng of a secon d speci men, colle cted two to four weeks after this speci men, is recom alok d if the index of the suspi cion for recen t infec tion is high. Not Available [facility] [address], [place], [address], 07/19/2022 22:09:35 07/20/19 23 07/19/2022 HEP C ANTIB SAMUEL hepatitis C antibody NONREA CTIVE nonrea ctive normal Testi ng perfo rmed on Dione ECLIA metho dolog y. Not Available [facility] [address] [place], [address], 07/19/2022 22:21:30 07/20/19 23 07/19/2022 HIV SCREE N 4TH GENER ATION WRFX HIV duo NONREA CTIVE nonrea ctive normal Elecs ys HIV Duo is an elect [facility] inesc ence immun oassa y ECLIA and is perfo rmed on the Kylah e801 immun oassa y anastasiya zer. Not Available d Lab [facility] [place], [address], 07/19/2022 22:25:58 07/20/19 23 07/19/2022 CHLAM YDIA/ GC PCR, SWAB/ URINE specimen type URINE Not Available d [place] [address] [place], [address], 07/20/2022 17:46:22 07/20/19 23 07/20/2022 CHLAM YDIA/ GC PCR, SWAB/ URINE chlamydia trachomatis NEGATI VE negati ve normal Not Available d Lab [facility] [place], [address], 07/20/2022 17:46:22 07/20/19 23 07/20/2022 CHLAM YDIA/ GC PCR, SWAB/ URINE neisseria gonorrhoeae NEGATI VE negati ve normal Not Available d Lab [facility] [place], [address], 07/20/2022 17:46:22 07/20/19 23 07/19/2022 TRICH OMONA S PCR specimen type URINE Not Available d [address] [address] [place], [address], 07/20/2022 17:46:23 07/20/19 23 07/20/2022 TRICH OMONA S PCR trichomonas PCR NEGATI VE negati ve normal Not Available d Lab [facility] [place], [address], 07/20/2022 17:46:23 07/20/19 23 07/19/2022 HEP B SURFA CE AG II hepatitis B surface Ag II NONREA CTIVE nonrea ctive normal Testi ng perfo rmed on Dione ECLIA metho dolog y. Not Available d Lab [address], [place], [address], 07/20/2022 17:46:25 09/15/19 23 09/14/2022 CULTU RE URINE results Attac hment Not Available d Lab [address], [place], [address], 09/16/2022 08:25:12 09/15/19 23 09/16/2022 CULTU RE URINE final MICROB IOLOGY RESULT S Cultu re Urine Final Sourc e: Repor t Date/ Time: 09/16 8:24A M Colle ction Date/ Time: 09/14 7:10P M 1630 Clini cortez Infor matio n Type of Patie nt Male Sourc e of urine cultu re VOIDE D/COURTNEY AN CATCH Penic illin Aller gy? N Cultu re Obser vatio n No growt h. Not Available d Lab [address], [place], [address], 09/16/2022 08:25:12 09/15/19 23 09/14/2022 urina lysis , dipst ick Unknown Analyte Neg Not Available [address], , 09/14/2022 18:13:34 09/15/19 23 09/14/2022 urina lysis , dipst ick Unknown Analyte 2 Not Available [address], , 09/14/2022 18:13:34 09/15/19 23 09/14/2022 urina lysis , dipst ick Unknown Analyte 1 Not Available [address], , 09/14/2022 18:13:34 09/15/19 23 09/14/2022 urina lysis , dipst ick Unknown Analyte 30 Not Available [address], , 09/14/2022 18:13:34 09/15/19 23 09/14/2022 urina lysis , dipst ick Unknown Analyte negati ve Not Available [address], , 09/14/2022 18:13:34 09/15/19 23 09/14/2022 urina lysis , dipst ick Unknown Analyte 25 Not Available [address], , 09/14/2022 18:13:34 09/15/19 23 09/14/2022 urina lysis , dipst ick Unknown Analyte Neg Not Available [address], , 09/14/2022 18:13:34 09/15/19 23 09/14/2022 urina lysis , dipst ick Unknown Analyte 5 Not Available [address], , 09/14/2022 18:13:34 09/15/19 23 09/14/2022 urina lysis , dipst ick Unknown Analyte 1.025 Not Available [address], , 09/14/2022 18:13:34 09/15/19 23 09/14/2022 urina lysis , dipst ick Unknown Analyte Neg Not Available [address], , 09/14/2022 18:13:34 12/10/19 23 12/10/2022 HIV SCREE N 4TH GENER ATION WRFX HIV duo NONREA CTIVE nonrea ctive normal Elecs ys HIV Duo is an elect [facility] inesc ence immun oassa y ECLIA and is perfo rmed on the Kylah e801 immun oassa y anastasiya zer. Not Available d Lab [address] [place], [address], 12/10/2022 14:59:43 12/10/19 23 12/10/2022 SYPHI LIS SCREE N/REF ANTOINE TO RPR T. pallidum antibody NEGATI VE negati ve normal No antib odies to T. palli dum (the agent causi ng Syphi lis) were detec malaika in the speci men. This resul t, does not exclu de very recen t T. palli dum infec tion; testi ng of a secon d speci men, colle cted two to four weeks after this speci men, is recom alok d if the index of the suspi cion for recen t infec tion is high. Not Available d Lab [address] [place], [address], 12/10/2022 15:14:19 12/10/19 23 12/10/2022 HEP C ANTIB SAMUEL hepatitis C antibody NONREA CTIVE nonrea ctive normal Testi ng perfo rmed on Dione ECLIA metho dolog y. Not Available d Lab [address] [place], [address], 12/10/2022 15:14:26 12/10/1912/10/2022 HEP B SURFA CE AG II hepatitis B surface Ag II NONREA CTIVE nonrea ctive normal Testi ng perfo rmed on Dione ECLIA metho dolog y. Not Available d Lab [address] [place], [address], 12/10/2022 18:09:00 12/10/19 23 12/10/2022 CHLAM YDIA/ GC PCR, URINE chlamydia trachomatis NEGATI VE negati ve normal Not Available d Lab [address], [address], 12/10/2022 18:09:04 12/10/19 23 12/10/2022 CHLAM YDIA/ GC PCR, URINE neisseria gonorrhoeae NEGATI VE negati ve normal Not Available d Lab [address] [place], [address], 12/10/2022 18:09:04 12/10/1912/10/2022 TRICH OMONA S PCR, URINE trichomonas PCR NEGATI VE negati ve normal Not Available d Lab [address] [place], [address], 12/10/2022 18:09:08 07/06/19 24 07/07/2023 RESPI RATOR Y PCR PANEL , LIMIT ED coronavirus sars-cov-2 NEGATI VE negati ve normal Not Available d Lab [address] [place], [address], 07/07/2023 06:38:57 07/06/19 24 07/07/2023 RESPI RATOR Y PCR PANEL , LIMIT ED influenza A virus NEGATI VE negati ve normal Not Available d Lab [address] [place], [address], 07/07/2023 06:38:57 07/06/19 24 07/07/2023 RESPI RATOR Y PCR PANEL , LIMIT ED influenza B virus NEGATI VE negati ve normal Not Available d Lab [address] [place], [address], 07/07/2023 06:38:57 07/06/19 24 07/07/2023 RESPI RATOR Y PCR PANEL , LIMIT ED human rhinovirus NEGATI VE negati ve normal Not Available d Lab [address] [place], [address], 07/07/2023 06:38:57 07/06/19 24 07/07/2023 RESPI RATOR Y PCR PANEL , LIMIT ED respiratory syncytial virus (RSV) NEGATI VE negati ve normal Not Available [facility] [address] [place], [address], 07/07/2023 06:38:57 07/06/19 24 07/06/2023 influ syeda virus A + B + SARS- CoV-2 (COVI D19) Ag panel , rapid IA, upper respi rator y speci men Flu A NEGATI VE Not Available [address], , 07/06/2023 18:53:14 07/06/19 24 07/06/2023 influ syeda virus A + B + SARS- CoV-2 (COVI D19) Ag panel , rapid IA, upper respi rator y speci men Flu B NEGATI VE Not Available [address], , 07/06/2023 18:53:14 07/06/19 24 07/06/2023 influ syeda virus A + B + SARS- CoV-2 (COVI D19) Ag panel , rapid IA, upper respi rator y speci men Covid-19 NEGATI VE Not Available [address], , 07/06/2023 18:53:14 Result Notes None recorded. Problems No Known Problems Procedures Surgical History Date Name Laterality Status Provider Name and Address Organization Details Recorded Time 3 . Venipuncture completed Berta ALNGLEY - .[facility] 12/09/2022 17:09:28 3 . Venipuncture completed Berta LANGLEY - .[facility] 07/19/2022 13:22:01 Imaging Results None recorded. Procedure Notes None recorded. Medical Equipment None Reported. Allergies No known drug allergies Medications Name Sig Start Date Stop Date Status Note LastModified by Organization Details LastModified Time cefdinir 300 mg capsule Take 1 capsule twice a day by oral route for 10 days. 024 active Not Available Not Available Not Phan ramírez Tylenol Extra Strength 500 mg tablet Take 2 tablet(s) by oral route once now in office 024 active Not Available Not Available Not Avai anhle Vitals Date Recorded Body height Body mass index (BMI) Body weight Heart rate Body temperature Respiratory rate Oxygen saturation Systolic And Diastolic Provider Name and Address Organization Details Last Updated DateTime 4 185.42 cm 26.4 kg/m2 68465.4 7 g 108 /min 102 [degF] 16 /min 98 % 126/68 mm[Hg] Lynsey Up [place] - [facility] 4 18:52:53 Date Recorded Body height Body mass index (BMI) [Percentile] Per age and sex Body mass index (BMI) Body weight Heart rate Body temperature Respiratory rate Oxygen saturation Systolic And Diastolic Provider Name and Address Organization Details Last Updated DateTime 3 185.42 cm 78 % 26.4 kg/m2 68005.4 7 g 86 /min 98.5 [degF] 16 /min 97 % 107/70 mm[Hg] Berta Dunn [place] - [facility] 3 13:07:39 Date Recorded Body height Body mass index (BMI) [Percentile] Per age and sex Body mass index (BMI) Body weight Body temperature Respiratory rate Oxygen saturation Heart rate Systolic And Diastolic Provider Name and Address Organization Details Last Updated DateTime 3 185.42 cm 78 % 26.4 kg/m2 04619.4 7 g 98.2 [degF] 16 /min 99 % 65 /min 106/78 mm[Hg] Mitali Velez [facility] 3 18:13:18 Date Recorded Body height Body mass index (BMI) Body weight Respiratory rate Body temperature Heart rate Oxygen saturation Systolic And Diastolic Provider Name and Address Organization Details Last Updated DateTime 3 185.42 cm 26.4 kg/m2 26379.4 7 g 16 /min 98.4 [degF] 78 /min 99 % 126/45 mm[Hg] Berta Dunn [place] - .[facility] 3 17:09:12 Date Recorded Body height Body mass index (BMI) Body mass index (BMI) [Percentile] Per age and sex Body weight Heart rate Body temperature Respiratory rate Oxygen saturation Systolic And Diastolic Provider Name and Address Organization Details Last Updated DateTime 185.42 cm 19.8 kg/m2 12 % 08799.8 6 g 69 /min 98.4 [degF] 16 /min 98 % 106/69 mm[Hg] Neris Reid [place] - .[facility] 17:27:53 Social History Question Answer Notes LastModified by [employer] Details LastModified Time Tobacco Smoking Status Never Smoker SHIVAM Trinh - .[facility] 02/03/2021 17:29:45 RISK LEVEL - Segmentation Level 1 - Healthy [id number] Information not available 08/18/2022 Sex: Unknown Functional Status Question Answer Note LastModified by [facility] Details LastModified Time 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 Family History Relationship Description Onset Age of this Age Resolved Age Notes LastModified by Organization Details LastModified Time Father No current problems or disability [email or web address] Not available 04/2020 17:29:41 Mother No current problems or disability [email or web address] Not available 04/2020 17:29:41 Medical History No medical history recorded. Past Encounters Encounter ID Performer Location Encounter Start Date Encounter Closed Date Diagnosis/Indication Diagnosis SNOMED-CT Code Diagnosis ICD10 Code Diagnosis IMO Codes Diagnosis Note [id number] Ginette Philip DO [facility] [address] [place] [address] 02/03/2021 16:59:58 02/03/2021 17:43:14 Exposure to SARS-CoV-2 738549435 Z20.822 [id number] Spring Laura MD [facility] [address] [place] [address] 07/19/2022 12:54:37 07/19/2022 13:22:32 Venereal disease screening 789820476 Z11.3 [id number] [facility] [address] [place] [address] 09/14/2022 17:37:18 09/14/2022 18:01:02 Abdominal pain 09137087 R10.9 prec, education given, unclear etiology, possible gastritis ddx pud, gerd, ddx gastroente ritis, rec. otc antacids, h2 precious, or peptobismo l, f/u pmd, consider GI consult, to go to ER for any problem, do not self-induc e vomiting, call or rtc prn [id number] Rashid Cavazos MD [facility]_ [facility] [address] [place] [address] 12/09/2022 16:55:21 12/09/2022 17:12:28 Venereal disease screening 792266347 Z11.3 Referral needed [id number] Z76.89 pt was also reffered to [facility] for pcp [id number] José Miguel Holt MD [facility]_ [facility] [address] [place] [address] 07/06/2023 18:45:17 07/06/2023 19:02:28 Exposure to viral disease 9529191417 88177 Z20.828 signs and symptoms suggestive of viral communicab le illness Fever 474854321 R50.9 Acute sinusitis 55516253 J01.90 Health Concerns Section Related Observation LastModified by Organization Detai ls LastModified Time None Recorded Concern Status LastModified by Organization Details LastModified Time None Recorded Advance Directives Directive None Recorded Payers Insurance Date Sequence Insurance Name Policy Number Policy Brantley Covered Member ID Brantley Member ID Guarantor Name 05/24/2021 1 *SELF PAY* Cam chamorro Francois 07/19/2022 COVID19 HRSA UNINSURED TESTING AND TREATMENT FUND [facility] 07/17/2024 1 WEST - [place]WEST () [facility] [id number] [facility] 04/23/2024 1 WEST - [place]WEST () [facility] [id number] [facility] 04/23/2024 1 FOR LIFE () Aiden Francois [id number] Aiden Francois 04/23/2024 1 FOR LIFE () Aiden Francois [id number] Aiden Valdezend 09/14/2022 1 *SELF PAY* Cam Francois 08/14/2022 1 EAST - HUMANA () Aiden Francois [id number] Aiden Valdezend 07/10/2024 1 EAST - HUMANA () Aiden Francois [id number] Aiden Valdezend 07/19/2022 COVID19 [facility] UNINSURED TESTING AND TREATMENT FUND Aiden Francois [id number] Aiden Francois Notes Date Note Type Note Provider Name and Address Organization Details Recorded Time 02/03/2021 text/html COVID-19 VISIT - cmdReported by PatientHPIFor covid vaccination status, patient reports(+) covid vaccination moderna and has been > 2 weeks since the final scheduled doseandreceived booster no. For pertinent findings, patient reportsno symptoms,no fever,no body aches,no sore throat,no nasal symptoms,no cough,no cp,no leg swelling,no neurologic deficits, andno sob. For chronic conditions considered and addressed, (denies). Ginette Philip [address] [place] [address], [address] [place] [address] - .[facility] 02/03/2021 19:18:56 07/19/2022 text/html STD Testing/Counseling/Qu estionnaire - cmdReported by PatientHPIFor timing, patient reportsno symptoms: asymptomatic testing. For recent exposure to std?, patient reportspossible std exposure. For symptoms, patient reportsno nausea,no vomiting,no dysuria,no back pain,no fever,no abdominal pain,no genital discharge, andno genital lesions. For recent testing for std?, patient reportsno recent std testing. For sexual partner hx, patient reportssexually active with females. For hsv history, patient reportsno hx of cold sores,no hx of genital herpes, andno hx of antibody to hsv 1 or 2. For std history, patient reportsno hx of std. For screening questions, patient reportshiv screening info given and discussed. SHIVAM Soto - .[facility] 07/19/2022 14:04:52 09/14/2022 text/html Abdominal Pain - Male - cmdReported by PatientHPIFor patient presents with, patient reportsabdominal pain which began 4-6 days ago. For pertinent findings, patient reports(+) vomiting (1 episode with mild blood)but reportsno fever,no nausea,no diarrhea,no constipation,no bloody stool,no pain radiation to the back,no pain rlq,no testicular pain, andno h/o previous abdominal surgery.21 y/o M, no signif PMH, reports 4 days of abdominal discomfort epigastric, mid upper abdomen,with some loose/watery stools, no blood, no mucus, and mild nausea, admits 1 episode self-induced vomiting to relieve nausea.Worse this morning after skipping breakfast, not eating for several ours, increasing discomfort, somewhat improved after emesis episode. denies Fever/chills/body aches, no new or different food, coffee/tea/spicy food consumption, travel hx, sick contact,Denies dysuria, hematuria, genital discharge, testicular pain, constipation, black stools, denies past hx of GERD, colitis, appendicitis, diverticulitis,pancre atitis, cholecystitis , hernia,Denies prior abd surgerypt reports he works out regularly but denies changing workout routine or lifting heavy weight smoking hx: N/Aotc: N/A Corbin Durand MD [address] [place] [address],[address], [place], [place], [address] [place] [address] - .[facility] 09/15/2022 13:45:17 12/09/2022 text/html STD Testing/Counseling/Qu estionnaire - cmdReported by PatientHPIFor timing, patient reportsno symptoms: asymptomatic testing. For recent exposure to std?, patient reportspossible std exposure. For symptoms, patient reportsno nausea,no vomiting,no dysuria,no back pain,no fever,no abdominal pain,no genital discharge, andno genital lesions. For recent testing for std?, patient reportsno recent std testing. For sexual partner hx, patient reportssexually active with females. For hsv history, patient reportsno hx of cold sores,no hx of genital herpes, andno hx of antibody to hsv 1 or 2. For std history, patient reportsno hx of std. For screening questions, patient reportshiv screening info given and discussed.lori spence STD testing Heena MENDEZ [address] [place] [address],[address], [place], [address] - .[facility] 12/10/2022 09:13:54 07/06/2023 text/html Nasal / Sinus complaint - cmdReported by PatientHPIFor patient presents with, patient reportsnasal / sinus symptoms which began a few hours ago. For pertinent findings, patient reports(+) sinus pain/pressure,(+) ear pain, and(+) coughbut reportsno fever,no pain or pressure,no discharge/congestion, no nose bleed,no throat complaints,no eye complaints,no shortness of breath, andno foreign body. 22 y/o M Pt p/w sinus pressure, stiffness in head/neck, cough w / phlegm , chills , sweats, ear pain and nausea x today.Pt was seen in a clinic for URI and states he was given antibiotic medication that he did not finish.Pt denies sore throat ,v/d, runny nose. OTC: ibuprophen (1 pill 200 mg) SHIVAM Lezama - .[facility] 07/07/2023 14:05:31
--- OUTSIDE RECORDS SUMMARY | 2025-02-07 15:30 | XMS_ITS | Clinical Summary ---
Author Organization [facility] [employer] Address [address] [place] [id number] Care Team Providers Care [employer] Name Role Phone Jorge Holcomb MD Primary Care Provide r Allergies Active Allergy Reactions Criticality Noted Date Comments Peanut Pruritis (Itching) Medium 11/15/2023 Medications No known medications Social History Tobacco Use Types Packs/Day Years Used Date Smoking Tobacco: Never Assessed Interpersonal Safety Answer Date Record ed Feels Unsafe at Home or Work/School no 04/23/2024 Feels Threatened by Someone no 04/05 Does Anyone Try to Keep You From Having Contact with Others or Doing Things Outside Your Home? no 04/23/2024 Has anyone hit you in the fa ce or head, made you fall and hit your head, shaken you or tried to strangle or choke you? no 04/23/2024 Physical Signs of Abuse Present no 04/23/2024 Description of findings Not on file 04/23/19 Sex and Gender Information Value Date Recorded Sex Assigned at Not on file Legal Sex Male 12:29 PM EDT Gender Identity Not on file Sexual Orientation Not on file Last Filed Vital Signs Vital Sign Reading Time Taken Comments Blood Pressure 137/71 04/23/2024 6:35 PM EST Pulse 83 04/23/2024 6:35 PM EST Temperature 36.5 C (97.7 F) 04/23/2024 6:35 PM EST Respiratory Rate 18 04/23/2024 6:35 PM EST Oxygen Saturation 99% 04/23/2024 6:35 PM EST Inhaled Oxygen Concentration - - Weight 93 kg (205 lb) 04/23/2024 6:35 PM EST Height 188 cm (6' 2 ) 04/23/2024 6:35 PM EST Body Mass Index 26.32 04/23/2024 6:35 PM EST Plan of Treatment Upcoming Encounters Date Type Department Care Team (Late st Contact Info) Description 02/20/2025 3:00 PM EST Office Visit [facility] at [address] and 4th [place] [address] Gabriela Hayes NP [address] [place] [place], [address] [place] [id number] Health Maintenance Due Date Last Done Comments HPV Vaccines (1 - Male 3-dos e series) 2016 Meningococcal B Vaccine (1 o f 2 - Standard) 2017 Annual Physical Examination 03/13/202011/2019, 06/23/2017, 05/05/2016, Additional history exists Covid-19 Vaccine (3 - 2024-2 6 season) 2024 10/30/2020, 09/29/2020 Influenza Vaccination (#1) 2024 03/12/2021 Tetanus Vaccination 06/24/2031 06/23/2021, 5 HIV Screening Completed 04/23/2024 Hepatitis C Screening Completed 04/23/2024 Procedures Procedure Name Priority Date/Time Associated Diagnosis Comments HIV 1 AND 2 ANTIGEN/ANTIBODY, 4TH GEN REFLEX, ROUTINE STAT 04/23/2024 7:38 PM EST HEPATITIS C VIRUS ANTIBODY, REFLEX TO RNA QUANT Routine 04/23/2024 7:38 PM EST from Last 3 Months or Most Recently Relevant to Health Maintenance Results * HEPATITIS C VIRUS ANTIBODY, REFLEX TO RNA QUANT (04/23/2024 7:38 PM EST) HEPATITIS C VIRUS ANTIBODY, TOTAL Non-Reacti ve Non-Reacti ve S/CO 04/24/2024 1:16 AM EST [facility] Comment: Performed by [facility]. [address] [place], [address]. CLIA:[id number], PFI: [id number] Director: Richy Jones MD, RENÉ, FCAP. blood STRUCTURE OF PERIPHERAL VEIN / Unknown 04/23/2024 7:38 PM EST 04/23/2024 11:06 PM EST Lonnie MENDEZ CHEMISTRY ORDERABLES Final R esult [facility] * HIV 1 AND 2 ANTIGEN/ANTIBODY, 4TH GEN REFLEX, ROUTINE (04/23/2024 7:38 PM EST) HIV 1 AND 2 AG/AB, 4TH GEN Non-React arlene Non-React arlene 04/23/2024 8:19 PM EST [facility] Comment: [place] State law prohibits the redisclosure of this information to any unauthorized alliance party. Unauthorized disclosure is a violation of state law and may result in a fine, chcf sentence or both. HIV Diagnostic Testing Algorithm Final Interpretation: Negative for HIV-1 antigen and HIV-1/HIV-2 antibodies. No laboratory evidence of HIV infection. If acute HIV infection is suspected, consider testing for HIV-1 RNA. Performed by [facility]. [address] [place], [address] CLIA: [id number] Director: Reynaldo Chang MD. blood PERIPHERAL ARTERY / Unknown 04/23/2024 7:38 PM EST 04/23/2024 7:43 PM EST us Lonnie MENDEZ CHEMISTRY ORDERABLES Final R esult [facility] [employer] from Last 3 Months or Most Recently Relevant to Health Maintenance Care Teams [employer] Relationship Specialty Start Date End Date Jorge Holcomb MD [address] [facility] [address] [place] [address] PCP - General Medicine, Internal Medicine 11/15/23
--- OUTSIDE RECORDS SUMMARY | 2025-02-07 15:30 | XMS_ITS | Clinical Summary ---
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 trait past lab.--h/o c trait in father--counselling done Attention deficit disorder with hyperactivity(31 4.01) 12/31/2009 Overview (06/03/2022): 12/12-h/o ADHD-on counselling once a week--hasapt. pschiatrist-welll controlled-02/13 on concerta 36 mg. well controlled-being followed by [facility] [place]-08/15 on concerta 36 mg. REPLACING DIAGNOSES THAT WERE INACTIVATED AFTER THE 06/03 REGULATORY IMPORT Immunizations Immunization Administration Dates Next Due DTaP 07/08/2007, 4,05/01/2002,02/18/2002,12/15/19 02 HIB, PRP OMP 3 DOSE IM 05/01/2002,02/18/2002,02/2002 Hep A, 2 Dose 08/11/2010,12/31/2009 Hepatitis A 08/11/2010,12/31/2009 Hepatitis B 08/06/2003,07/22/2002,2001 IPV 08/11/2010,08/06/2003,11/24/2002 ,02/18/2002 MMR 04/17/2006,11/24/2002 Meningococcal Conjugate 03/12/2014 Meningococcal MCV4P 01/31/2018 Pneumococcal Conjugate 11/24/2002,05/01/2002,02/2002 Tdap 03/12/2014 Varicella 07/08/2007,11/24/2002 ppd test 06/23/2017,12/07/2014 Family History Medical History Relation Name Comments Hypertension Maternal Grandmother Relation Name Status Comments Maternal Grandmother Social History Tobacco Use Types Packs/Day Years Used Date Smoking Tobacco: Never Smokeless Tobacco: Never Alcohol Use Standard Drinks/Week Comments No 0 (1 standard drink = 0.6 oz pur e alcohol) PHQ-2 Answer Date Recorded PHQ-2 Score 1 03/13/2019 Health Literacy Answer Date Recorded Trouble understanding healthcare information Not on file 08/03/2020 Inadequate Housing Answer Date Recorded Type of residence: Not on file 02/03/2022 Do you worry about losing your housing? Not on f ile 02/03/2022 Within the past 12 months, h ave you or the family members you live with been unable to get heat, electricity, or water when it was really needed? Not on file 02/03/2022 Comments Not on file 02/03/2022 Medication Challenges Answer Date Recor ded Medication Challenges Not on file 08/03/2020 Medication Challenges Types Not on file 03/2020 Medication Challenges - Other reasons Not on lindsey e 08/03/2020 Sex and Gender Information Value Date Recorded Sex Assigned at Not on file Legal Sex Male 4:33 PM EDT Gender Identity Not on file Sexual Orientation Not on file Last Filed Vital Signs Vital Sign Reading Time Taken Comments Blood Pressure 122/70 03/13/2019 5:50 PM EST Pulse 81 03/13/2019 5:50 PM EST Temperature 36.8 C (98.2 F) 03/13/2019 5:50 PM EST Respiratory Rate - - Oxygen Saturation 99% 03/13/2019 5:50 PM EST Inhaled Oxygen Concentration - - Weight 68.9 kg (152 lb) 03/13/2019 5:50 PM EST Height 182.9 cm (6') 03/13/2019 5:50 PM EST Body Mass Index 20.61 03/13/2019 5:50 PM EST Plan of Treatment Health Maintenance Due Date Last Done Comments HPV Vaccine (1 - Male 3-dose series) 2016 Meningococcal B Vaccine (1 of 2 - Standard) 2017 DTaP,Tdap,and Td Vaccines (7 - Td or Tdap) 03/12/2024 03/12/2014, 07/08/2007, 08/06/2003, Additional history exists Influenza Vaccine 11/03/2024 HIB Vaccine Aged Out 05/01/2002, 04/06, 02/18/2002, Additional history exists No longer eligible based on patient's age to complete this topic Pneumococcal Vaccine: 0-49 years Aged Out 11/24/2002, 05/01/2002, 2001 No longer eligible based on patient's age to complete this topic Hepatitis B Vaccine Completed 08/06/2003, 07/22/2002, 2001 Measles, Mumps, Rubella Vaccine Completed 04/17/2006, 11/24/2002 Varicella Vaccine Completed 07/08/2007, 11/24/2002 Hepatitis A Vaccine Completed 08/11/2010, 08/11/2010, 12/31/2009, Additional history exists Meningococcal Vaccine Completed 01/31/2018, [address] BLUE CARD Member Subscriber Plan / Payer (Ef fective 2019-Present) Name:Aiden Francois Relation to Subscriber:Child Name:RAMONA OBRIEN Date of :1982 Address: [address] [place] [address] [address] [place] [address] Payer ID:[id number] (NAIC) Type:Commercial Address: [address] [address] [facility] GENERIC Care Teams Transition Lead Relationship Specialty Start Date End Date Rita Ashby MD [address] [place] [address] PCP - General Pediatrics 06/23/17
== END 2025-02-07 15:30 | disposition home or self-care (01) ==
LOC: HO.ED 15:26
PROVIDERS: Emergency Provider Emergency Medicine
DX: S93.401A Sprain of unspecified ligament of right ankle, initial encounter (principal); M25.571 Pain in right ankle and joints of right foot; X50.9XXA Other and unspecified overexertion or strenuous movements or postures, initial encounter; Y93.02 Activity, running; Y92.9 Unspecified place or not applicable; Y99.8 Other external cause status
CPT/HCPCS: 73610; 73630; 99283

== ENCOUNTER → 2025-02-07 12:11 | Outpatient (BNV) | payer OTHER, SELFPAY | PROVIDERS: Emergency Provider Emergency Medicine; Visit Provider Radiology Diagnostic Radiology | DX: M25.571 Pain in right ankle and joints of right foot (principal); X50.9XXA Other and unspecified overexertion or strenuous movements or postures, initial encounter; Z04.3 Encounter for examination and observation following other accident | CPT/HCPCS: 73610; 73630 ==